=== PATIENT | female | born 1950 | race Caucasian/White ===

== ENCOUNTER 2017-11-22 08:40 | Day surgery (SDC) | payer OTHER ==
[2017-11-16 11:17] VITALS: BMI 19.4
[2017-11-22] MEDS ORDERED: PROPOFOL 20 ML ONE ×2 (08:55)
[2017-11-22] MEDS ORDERED: LIDOCAINE HCL/PF 2% SDV 5ML VIAL ONE (08:55)
[2017-11-22 10:23] VITALS: BP 118/65; PULSE 70; TEMP 98
--- NOTE | 2017-11-23 13:16 | PATH ---
Surgical Pathology Report Patient Name: TAMMI ARREDONDO [facility]. Rec. #: [id number] /Age/Gender: 1950 (Age: 66) / F Account: [id number] Location: Taken: 11/22/2017 Received: 11/22/2017 Reported: 11/23/2017 Physicians: Ritesh Schaeffer M.D. Specimen(s) Received BX SIGMOID Clinical History Preoperative diagnosis: History of polyps Postoperative diagnosis: Polyp Final Diagnosis COLON, SIGMOID, BIOPSY: BENIGN COLONIC MUCOSA, AND PORTIONS OF INFLAMED GRANULATION TISSUE WITH SUPERFICIAL NECROSIS SUGGESTIVE OF ULCER BED. NO ADENOMATOUS CHANGE IDENTIFIED. Electronically Signed Italo Andrade M.D. Gross Description Received in formalin, labeled "sigmoid" are 2 awan, irregular portions of soft tissue averaging 0.3 cm. in greatest dimension. The specimens are submitted in toto in one cassette. /11/22/201711/22/2017
== END 2017-11-22 10:35 | disposition home or self-care (01) ==
LOC: FASU-ENDO 08:40
PROVIDERS: ATTEND Internal Medicine Gastroenterology
PROC: 0DBN8ZX Excision of Sigmoid Colon, Via Natural or Artificial Opening Endoscopic, Diagnostic (ICD-10-PCS; principal; 2017-11-22 09:15)
DX: Z86.010 Personal history of colon polyps (principal); D12.5 Benign neoplasm of sigmoid colon; K57.30 Diverticulosis of large intestine without perforation or abscess without bleeding
CPT/HCPCS: 88305-TC